=== PATIENT | female | born 2005 | race Caucasian/White ===

== ENCOUNTER 2024-09-27 06:52 | Outpatient (REF) | payer BC, SELFPAY ==
--- NOTE | ~2024-09-27 | US_ITS ---
CLINICAL HISTORY: Abdominal bloating, GERD x 2 months US abdomen complete Comparison: None Findings: The visualized pancreas is normal. The aorta and inferior vena cava are normal caliber. The liver is normal in size and echotexture. There is no intrahepatic bile duct dilatation. The common duct is 4.0 mm in diameter. The gallbladder is normal. There is no sonographic Garsia sign. The main portal vein is antegrade. The right kidney is 9.1 cm in length. The left kidney is 9.5 cm in length. The spleen is normal. No ascites. IMPRESSION: 1. Normal complete abdominal ultrasound. This document has been electronically signed by: Mark Garzon MD on 09/28/2024 08:28:29
== END 2024-09-27 06:53 | disposition home or self-care (01) ==
LOC: HO.UMASIMG 06:52
PROVIDERS: Visit Provider Family Medicine
DX: R14.0 Abdominal distension (gaseous) (principal)
CPT/HCPCS: 76700

== ENCOUNTER → 2024-09-27 08:32 | Outpatient (BNV) | payer BC, SELFPAY | PROVIDERS: Visit Provider Specialist | DX: K21.9 Gastro-esophageal reflux disease without esophagitis (principal) | CPT/HCPCS: 76700 ==